=== PATIENT | male | born 1945 | race Caucasian/White ===

== ENCOUNTER 2023-02-02 22:32 | Emergency (ER) | payer OTHER ==
[2023-02-03 00:07] LABS: ALT (SGPT) 10 U/L (8-55); AST (SGOT) 21 U/L (5-34); Albumin 3.2 g/dL (3.4-4.8); Alkaline Phosphatase 75 U/L (40-110); Anion Gap 14 mmol/L (10-20); BUN (Urea Nitrogen) 16 mg/dL (8.4-25.7); Bilirubin, Total 0.3 mg/dL (0.2-1.2); Calc. Creatinine Clearance 0 mL/min (70-130); Calcium 8.3 mg/dL (7.8-10.44); Carbon Dioxide 22 mmol/L (23-31); Chloride 101 mmol/L (98-107); Estimated GFR 64; Globulin 2.2 g/dL (2.4-3.5); Glucose 135 mg/dL (83-110); Potassium 3.5 mmol/L (3.5-5.1); Protein, Total 5.4 g/dL (5.8-8.1); Sodium 133 mmol/L (136-145)
[2023-02-03 00:11] LABS: #Eosinphils 0.1 10x3/uL (0.0-0.5); #Monocytes 0.7 10x3/uL (0.0-1.1); %Basophils 0.4 % (0.0-2.0); %Eosinophils 1.4 % (0.0-6.0); %Lymphocytes 16.1 % (18.0-47.0); %Monocytes 11.9 % (0.0-10.0); Hematocrit 14.8 % (38.8-50.0); Hemoglobin 4.7 g/dL (13.5-17.5); Mean Corpuscular HGB CONC 31.8 g/dL (32.0-36.0); Mean Corpuscular Hemoglobin 31.3 pg (27.0-33.0); Mean Corpuscular Volume 98.7 fl (81.2-95.1); Mean Platelet Volume 10.1 fl (7.4-10.4); Platelet Count 293 10x3/uL (150-450); RBC Distribution Width 16.2 % (11.5-14.5); White Blood Cell (WBC) Count 5.6 10x3/uL (3.5-10.5)
[2023-02-03 04:40] LABS: Hematocrit 20.1 % (38.8-50.0); Hemoglobin 6.6 g/dL (13.5-17.5)
== END 2023-02-03 08:55 | disposition short-term general hospital (02) ==
LOC: CSHERS 22:32 → EEVIPCON 22:32 → CSHERS 02-03 08:55
DX: D62 Acute posthemorrhagic anemia (principal); I25.10 Atherosclerotic heart disease of native coronary artery without angina pectoris; J44.9 Chronic obstructive pulmonary disease, unspecified; I10 Essential (primary) hypertension; E03.9 Hypothyroidism, unspecified; Z79.899 Other long term (current) drug therapy; Z86.718 Personal history of other venous thrombosis and embolism
CPT/HCPCS: 36415; 36430; 71045; 80053; 85014; 85018; 85025; 85379; 86850; 86900; 86901; 87040; 93005; P9016

== ENCOUNTER 2023-09-16 11:42 | Emergency (ER) | payer OTHER ==
[2023-09-16] MEDS ORDERED: Ipratropium/Albuterol 3 ML NEB ONE (13:08)
[2023-09-16] MEDS ORDERED: Albuterol 2.5 MG (3 mL) NEB ONE (13:12)
[2023-09-16] MEDS ORDERED: Dexamethasone 10 MG/ML VIAL ONE (13:13)
== END 2023-09-16 14:56 | disposition home or self-care (01) ==
LOC: EEVIPCON 11:42 → CSHERS 11:42
DX: J44.1 Chronic obstructive pulmonary disease with (acute) exacerbation (principal); I25.10 Atherosclerotic heart disease of native coronary artery without angina pectoris; I48.91 Unspecified atrial fibrillation; E03.9 Hypothyroidism, unspecified; Z86.718 Personal history of other venous thrombosis and embolism; Z79.899 Other long term (current) drug therapy; Z79.84 Long term (current) use of oral hypoglycemic drugs; Z79.82 Long term (current) use of aspirin; Z79.01 Long term (current) use of anticoagulants
CPT/HCPCS: 71045; 93005; 93010; 94640; 94760; 96372; J1100; J7611; J7620